=== PATIENT | male | born 1945 | race Caucasian/White ===

== ENCOUNTER 2017-04-14 13:04 | Emergency (ER) | payer OTHER ==
[2017-04-14 13:09] VITALS: BP 114/68; PULSE 65; RESP 18; TEMP 97.5; O2SAT 95
--- NOTE | 2017-04-14 13:38 | EDPHY ---
H & P Smoking Status: Former smoker HPI/ROS: Chief complaint: Left pointer finger cut History of present illness: This is a 72-year-old male, on Coumadin for atrial fibrillation who presents to the emergency department for a left pointer finger cut. Patient states last night he cut the very tip of his finger. He placed a Band-Aid on it. But today taken off his started to bleeding he has been unable to control. He did have his INR checked today at 3.9. Denies other associated signs or symptoms at this time. No report of paresthesias, abnormal coolness in the finger or difficulty moving the finger. His tetanus is up-to-date. ( Naldo Gutierrez) Physical Exam: General: Alert, nontoxic Skin: There is a trace defect to the tip of the left pointer finger. Not amenable to repair. Oozing of blood noted. Musculoskeletal: Patient is flexing extending his finger in the DIPJ, PIP and MCP joint well Vascular: Capillary refill brisk in the left pointer finger Neurologic: Sensation intact using light touch and two-point discrimination ( Naldo Gutierrez) Constitutional: Initial Vital Signs Temperature (C) 36.4 C 04/14/17 13:05 Heart Rate 65 04/14/17 13:05 Respiratory Rate 18 04/14/17 13:05 Blood Pressure 114/68 04/14/17 13:05 O2 Sat (%) 95 04/14/17 13:05 O2 Delivery Mode Room Air Allergies/Adverse Reactions: cefazolin sodium [From Anc] Allergy (Unknown, Verified 06/28/13 09:50) Home Medications: Medication Instructions Recorded Complete By Pharmacy 09/01/12 09/01/12 Diltiazem HCl [Tiazac] 1 cap PO DAILY 09/01/12 Warfarin Sodium [Coumadin 5MG (RX)] 5 mg PO SUTUTHSA 09/01/12 Warfarin Sodium [Coumadin 7.5MG 7.5 mg PO MWF 09/01/12 (RX)] Hydrocodone/APAP 5/325 [Fluker 1 - 2 tab PO Q4H PRN #10 tab 06/08/14 5/325] predniSONE 06/08/14 MDM/Departure - MDM ED Course/Re-evaluation: Patient seen under the supervision of my secondary supervising physician Dr. Gadiel Finney. Patient presents to the emergency department for a cut to the tip of his left pointer finger. The finger is neurovascularly intact. He has good musculoskeletal control. His tetanus is up-to-date. His INR was checked today and was 3.9, slightly supratherapeutic. However this is a very small wound and has been dressed and bleeding has been controlled. I do not believe he needs to adjust his Coumadin at this time. He is discharged home. Home care is discussed. He is to follow up with his primary care doctor for recheck. Return precautions are given. (Naldo Gutierrez) I did not see this patient while he was in the emergency department. However his care was discussed with the PA while the patient was in the department. I agree with treatment plan and management. I am the secondary supervising physician (Gadiel Finney) - Depart Disposition: Home, Routine, Self-Care Clinical Impression: Abrasion Condition: Good Instructions: Abrasion (ED) Additional Instructions: Follow-up with your primary care doctor for recheck this week Leave dressing on for 24 hours If symptoms worsen or new symptoms develop return to the emergency room for recheck Referrals: Judy Emerson MD [Primary Care Provider] - As per Instructions
== END 2017-04-14 13:51 | disposition home or self-care (01) ==
DX: S60.411A Abrasion of left index finger, initial encounter (principal); Z87.891 Personal history of nicotine dependence; Z79.01 Long term (current) use of anticoagulants; W45.8XXA Other foreign body or object entering through skin, initial encounter

== ENCOUNTER → 2017-09-11 | Outpatient (CLI) | payer OTHER | LOC: BHFA 15:00 | PROVIDERS: ATTEND Internal Medicine Cardiovascular Disease | DX: I48.91 Unspecified atrial fibrillation (principal); I25.10 Atherosclerotic heart disease of native coronary artery without angina pectoris ==

== ENCOUNTER 2017-09-25 07:16 | Day surgery (SDC) | payer OTHER ==
[2017-09-25] MEDS ORDERED: MIDAZOLAM 2 MG/2 ML VIAL IVP PRN (07:25)
[2017-09-25] MEDS ORDERED: NALOXONE HCL 0.4 MG/ML INJ IVP PRN (07:25)
[2017-09-25] MEDS ORDERED: HEPARIN 10,000 UNIT/10 ML MDV (1,000 UNIT/ML) IVP PRN (07:25)
[2017-09-25] MEDS ORDERED: fentaNYL 100 MCG/2 ML INJ IVP PRN (07:25)
[2017-09-25] MEDS ORDERED: MEPERIDINE 25 MG/ML SYR IVP PRN (07:25)
[2017-09-25] MEDS ORDERED: PROTAMINE SULFATE 50 MG/5 ML VIAL IVP PRN (07:25)
[2017-09-25] MEDS ORDERED: FLUMAZENIL 0.5 MG/5 ML MDV IVP PRN (07:25)
[2017-09-25] MEDS ORDERED: NS 1,000 ML IV SCH (07:30)
[2017-09-25] MEDS ORDERED: IOPAMIDOL (ISOVUE-370) 150 ML BTL IV ONE (08:08)
[2017-09-25] MEDS ORDERED: LIDOCAINE 1% 300 MG/30 ML SDV ONE (08:09)
--- NOTE | 2017-09-25 08:23 | PDPROPOC ---
Sedation Plan of Care Sedation Plan of Care: vital signs stable, mental status noted, patient educated of risks, benefits, alternatives, patient can tolerate sedation ASA Classification: ASA 2 Planned drugs: fentanyl, midazolam Mallampati Score: Class 2 Mallampati Reference Image:
--- NOTE | 2017-09-25 08:23 | PDGENHP ---
History & Physical Chief Complaint: planning to switch OAC History of Present Illness: 66M with longstanding L subclavian pacer. 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 F/u venogram in 2012 showed widely patent central veins. Currently asymptomatic. Relevant Physical Exam: No UE edema. Cardiorespiratory Assessment: rrr, nl wob
--- NOTE | 2017-09-25 09:07 | PDRADPN ---
Radiology Procedure Note Date of Procedure: 09/25/17 Radiologist: Luciano Chan Anesthesia: Local (Specify) Pre-op Diagnosis: prior h/o left subclavian vein stenosis Post-op Diagnosis: same Indication: r/o recurrent stenosis Procedure: venogram Finding(s): widely patent central veins. no intervention indicated. Inf/Abcess present in the surg proc area at time of surgery?: No EBL: Minimal Complications: none
[2017-09-25 09:42] VITALS: BP 118/65
== END 2017-09-25 09:40 | disposition home or self-care (01) ==
LOC: FIMAGING 07:16
PROVIDERS: ATTEND Internal Medicine Hematology & Oncology
PROC: 05HA33Z Insertion of Infusion Device into Left Brachial Vein, Percutaneous Approach (ICD-10-PCS; principal; 2017-09-25 09:05)
DX: Z86.718 Personal history of other venous thrombosis and embolism (principal); Z95.0 Presence of cardiac pacemaker; I48.2 Chronic atrial fibrillation
CPT/HCPCS: J1644; J2250; J2310; J3010; Q9967

== ENCOUNTER → 2017-12-17 | Outpatient (CLI) | payer OTHER | LOC: BHFA 14:45 | PROVIDERS: ATTEND Internal Medicine Cardiovascular Disease | DX: I48.91 Unspecified atrial fibrillation (principal) ==

== ENCOUNTER 2018-02-23 09:33 | Day surgery (SDC) | payer OTHER ==
[2018-02-23] MEDS ORDERED: NS 1,000 ML IV ONE (09:35)
[2018-02-23] MEDS ORDERED: BACITRACIN IRRIGATION/NS 50,000 UNITS/1,000 ML BTL IRR ONE (09:35)
[2018-02-23] MEDS ORDERED: diphenhydrAMINE 25 MG CAP PO ONE (09:35)
[2018-02-23] MEDS ORDERED: DIAZEPAM 5 MG TAB PO ONE (09:35)
[2018-02-23 10:08] LABS: PLATELET COUNT 161 10^3/uL (150-400)
[2018-02-23] MEDS ORDERED: ceFAZolin 2 GM/DEXTROSE 100 ML IV ONE (10:10)
[2018-02-23 10:19] LABS: INR 1.25 (0.83-1.16); PROTIME(PATIENT) 15.9 SEC (12.0-15.0)
--- NOTE | 2018-02-23 11:56 | PDGENHP ---
History & Physical Chief Complaint: generator change History of Present Illness: Mr. Kumar presents today for PPM generator change , recent device check demonstrated generator nearing DAYANARA. PPM originally implanted for ventricular pauses. Relevant Physical Exam: Cardiac exam regular rate and rhythm. Respiratory CTA. Pulses 2+ bilaterally. A&O x3 Cardiorespiratory Assessment: Generator change to be completed with local anesthesia only.
[2018-02-23] MEDS ORDERED: LIDOCAINE 1% 300 MG/30 ML SDV ONE (12:30)
[2018-02-23] MEDS ORDERED: BUPIVACAINE 0.75% 10 ML SDV ONE (12:31)
[2018-02-23] MEDS ORDERED: fentaNYL 100 MCG/2 ML INJ ONE (12:31)
[2018-02-23] MEDS ORDERED: MIDAZOLAM 2 MG/2 ML VIAL ONE (12:31)
--- NOTE | 2018-02-23 16:36 | EPPROC ---
Electrophysiology Procedure Note: PROCEDURE PERFORMED: 1. V Pacemaker generator change INDICATION: Pacemaker generator at DAYANARA Bradycardia PROCEDURE NOTE: Patient presented to the cardiac catheterization laboratory in a fasting, postabsorptive state. No sedation was given. The L infraclavicular area was prepped and draped in the usual sterile fashion. Lidocaine plus bupivacaine was used for local anesthesia. Using a combination of blunt and sharp dissection and electrocautery, the dissection was carried down to the prepectoral fascia and the existing pacemaker pocket was opened. The pacemaker generator was disconnected from the leads and the lead thresholds and impedance were checked. The pacemaker pocket was copiously irrigated with antibiotic solution. The pocket was again inspected for any bleeding. The leads were attached to the pacemaker securely. The pacemaker was inserted into the pocket and secured in place with a nonabsorbable suture. The pacemaker pocket was closed in 3 layers with absorbable monocryl sutures and neil. Appropriate dressing was applied. The patient left the cardiac catheterization laboratory in stable condition. Serial Numbers: 1. Device : [facility] PM 1272, SN: [id number] 2. Ventricular Lead: MAYDA 4076/52, SN: [id number] Stimulation Thresholds & Impedance Measurements: 1. Ventricular Lead: 0.9V@0.5ms / 451 ohm/ 9.5 mV. Jamey Pacing Parameters 1. Pacing mode: VVI 2. Lower rate: 40
--- NOTE | 2018-02-25 22:49 | CPEKG ---
Test Reason : OPEN Blood Pressure : / mmHG Vent. Rate : 064 BPM Atrial Rate : 106 BPM P-R Int : 138 ms QRS Dur : 112 ms QT Int : 430 ms P-R-T Axes : 000 103 004 degrees QTc Int : 444 ms Atrial fibrillation with slow ventricular response Left posterior fascicular block Occasional ventricular paced rhythm Confirmed by Dale Barajas ([id number]) on 02/25/2018 10:49:25 PM Referred By: Confirmed By:Dale Barajas
== END 2018-02-23 15:00 | disposition home or self-care (01) ==
LOC: FCATH 09:33
PROVIDERS: ATTEND Internal Medicine Cardiovascular Disease
DX: Z45.010 Encounter for checking and testing of cardiac pacemaker pulse generator [battery] (principal); R00.1 Bradycardia, unspecified; I48.91 Unspecified atrial fibrillation; I44.5 Left posterior fascicular block
CPT/HCPCS: C1786; J0690; J2250; J3010